=== PATIENT | female | born 1990 | race African-American/Black ===

== ENCOUNTER 2018-01-22 19:20 | Outpatient (CLI) | payer BC ==
[2018-01-22 19:24] VITALS: BP 132/78; PULSE 78; TEMP 98.2
[2018-01-22] MEDS ORDERED: PRENATAL MVI (20:00)
[2018-01-22] MEDS ORDERED: ZANTAC 150MG T150 MG (20:01)
[2018-01-22] MEDS ORDERED: PROFERRIN ES12 MG (20:02)
== END 2018-01-22 22:00 | disposition home or self-care (01) ==
LOC: LDRO 19:20
DX: O62.9 Abnormality of forces of labor, unspecified (principal); Z3A.38 38 weeks gestation of pregnancy

== ENCOUNTER 2018-01-27 16:20 | Inpatient (IN) | payer BC ==
[~2018-01-27] VITALS: Ht 167.6 cm; Wt 100.5 kg
[~2018-01-27 16:20] MED LIST: PRENATAL MVI; PROFERRIN ES12 MG; ZANTAC 150MG T150 MG
[2018-01-31] VITALS (40 sets, daily range): BP systolic 121–156; BP diastolic 59–97; PULSE 60–89; TEMP 97.9–98.3
[2018-01-31 08:58] LABS: BASO # 0.1 (0.0-0.2); BASO % 0.7 % (0.0-2.0); EOS # 0.3 (0.0-0.7); EOS % 3.1 % (0-4.0); GRAN # 6.1 (1.4-6.5); GRAN % 66.6 % (42.2-75.2); HEMATOCRIT 36.5 % (37.0-47.0); HEMOGLOBIN 11.8 g/dl (12.5-16.0); LYMPH # 1.9 (1.2-3.4); LYMPH % 20.5 % (20.0-51.0); MEAN CELL VOLUME 88 fl (80.0-100.0); MEAN CORPUSCULAR HEMOGLOBIN 28 pg (27.0-31.0); MEAN CORPUSCULAR HGB CONC 32 g/dl (33.0-37.0); MEAN PLATELET VOLUME 13.5 fl (7.4-10.4); MONO # 0.8 (0.1-0.6); MONO % 8.4 % (1.7-9.3); PLATELET COUNT 156 K/mm3 (130-400); RED BLOOD COUNT 4.17 M/mm3 (4.10-5.30); REDCELL DISTRIBUTION WIDTH-CV 15.5 % (11.5-14.5)
[2018-02-01 02:55] VITALS: BP 115/74; PULSE 87; TEMP 97.7
[2018-02-01] MEDS ORDERED: IBU600 MG PO (08:37)
[2018-02-01] MEDS ORDERED: PERCOCET 325 MG1 TA2 PO (08:37)
[2018-02-01 10:31] VITALS: BP 130/80; PULSE 80; TEMP 98.4
[2018-02-01 19:00] VITALS: BP 135/77; PULSE 65; TEMP 99.5
== END 2018-02-01 20:00 | disposition home or self-care (01) | DRG 774 ==
LOC: LDR 16:20 → OB 01-31 07:16 → LDR 01-31 07:16 → OB 01-31 16:34
PROVIDERS: Obstetrics & Gynecology
PROC: 10E0XZZ Delivery of Products of Conception, External Approach (ICD-10-PCS; principal; 2018-01-31)
PROC: 0KQM0ZZ Repair Perineum Muscle, Open Approach (ICD-10-PCS; 2018-01-31)
PROC: 3E033VJ Introduction of Other Hormone into Peripheral Vein, Percutaneous Approach (ICD-10-PCS; 2018-01-31)
DX: O48.0 Post-term pregnancy (principal); O72.1 Other immediate postpartum hemorrhage; O70.1 Second degree perineal laceration during delivery; Z3A.40 40 weeks gestation of pregnancy; Z37.0 Single live birth
CPT/HCPCS: J2210; J2590; J2795; J7120

== ENCOUNTER → 2020-09-05 | Outpatient (CLI) | payer BC ==
[~2020-09-05] MED LIST changes: +IBU600 MG PO; +IBU800 M1 PO; +NATURAL IRON65 MG PO; +PERCOCET 325 MG1 TA2 PO; +PROTONIX20 MG PO; +ZYRTEC 10MG10 MG PO
== END ==
LOC: ZCOL.LAB 08:00
DX: Z20.828 Contact with and (suspected) exposure to other viral communicable diseases (principal)

== ENCOUNTER 2020-09-09 07:08 | Inpatient (IN) | payer BC ==
[2020-09-09] VITALS (38 sets, daily range): BP systolic 107–158; BP diastolic 7–87; PULSE 60–660; TEMP 97.7–99.6
[~2020-09-09] VITALS: Ht 172.7 cm; Wt 103.2 kg
[~2020-09-09 07:08] MED LIST changes: -IBU800 M1 PO; -NATURAL IRON65 MG PO; -PROTONIX20 MG PO; -ZYRTEC 10MG10 MG PO
--- NOTE | 2020-09-09 07:20 | NUR ---
Patient ambulatory onto unit with at side for scheduled inducation of labor. Patient oriented to room, changes into gown, plan of care discussed. Patient reports good movement and irregular contractions, denies vaginal bleeding or leaking of fluid. EFMs on, VS taken. IV attempted x2, then started in right hand at 0740. Assessment completed. Consents signed.
[2020-09-09 08:06] LABS: BASO # 0.1 (0.0-0.2); BASO % 0.5 % (0.0-2.0); EOS # 0.2 (0.0-0.7); EOS % 1.9 % (0-4.0); GRAN # 6.6 (1.4-6.5); GRAN % 66.4 % (42.2-75.2); HEMOGLOBIN 11.2 g/dl (12.5-16.0); LYMPH # 2.3 (1.2-3.4); LYMPH % 22.7 % (20.0-51.0); MEAN CELL VOLUME 84 fl (80.0-100.0); MEAN CORPUSCULAR HEMOGLOBIN 27 pg (27.0-31.0); MEAN CORPUSCULAR HGB CONC 33 g/dl (33.0-37.0); MEAN PLATELET VOLUME 12.5 fl (7.4-10.4); MONO # 0.8 (0.1-0.6); MONO % 7.7 % (1.7-9.3); PLATELET COUNT 199 K/mm3 (130-400); REDCELL DISTRIBUTION WIDTH-CV 14.6 % (11.5-14.5)
[2020-09-09 08:11] LABS: HEMATOCRIT 34.5 % (37.0-47.0)
[2020-09-09] MEDS ORDERED: PROTONIX20 MG PO (08:39)
[2020-09-09] MEDS ORDERED: ZYRTEC 10MG10 MG PO (08:40)
[2020-09-09] MEDS ORDERED: NATURAL IRON65 MG PO (08:40)
--- NOTE | 2020-09-09 09:10 | NUR ---
Patient up to bathroom, voids without difficulty. Patient states contractions are becoming more frequent and intense. Standing at bedside and birthing ball offered, patient would like to stay in bed for now. supportive at bedside. Call light within reach.
--- NOTE | 2020-09-09 09:50 | NUR ---
to bedside. Plan of care discussed with patient. Questions answered. AROM at 0953, small amount of clear fluid noted with exam. SVE 3/-3 per provider. Call light within reach.
--- NOTE | 2020-09-09 10:15 | NUR ---
Patient up to bathroom, voids without difficulty. Patient states contractions are more intense but denies need for epidural at this time. Patient standing/swaying at bedside. supportive. Call light within reach.
--- NOTE | 2020-09-09 10:35 | NUR ---
Patient breathing through contractions, requesting epidural placement. Will notify Rolf MANCIA. Pericare performed, large amount of clear fluid noted.
--- NOTE | 2020-09-09 11:10 | NUR ---
1058: Patient sitting up for epidural placement. Rolf CABLE INSTALLER REPAIRER HELPER at bedside. 1102: Lidocaine. Single Shot given by Rolf CABLE INSTALLER REPAIRER HELPER, no adverse reactions noted. 1103: Epidural Catheter placed. 1110: Patient repositioned to left lateral.
--- NOTE | 2020-09-09 12:35 | NUR ---
to bedside. SVE 4-5//-2 per provider. Patient repositioned to left lateral with peanut ball in place. Patient denies pain or needs at this time. Call light within reach.
--- NOTE | 2020-09-09 13:20 | NUR ---
Patient repositioned to remington position. Denies pain or needs at this time. Encouraged to rest. Call light within reach.
--- NOTE | 2020-09-09 14:00 | NUR ---
SVE /-1. Patient repositioned to left lateral position with right leg up in stirrups. Patient denies pain or needs. at bedside. Call light within reach.
--- NOTE | 2020-09-09 14:35 | NUR ---
Patient reports feeling rectal pressure with contractions. SVE 8/100/0. Patient repositioned to right tilt with peanut ball in place.
--- NOTE | 2020-09-09 14:45 | NUR ---
Patient reports increased rectal pressure. "It feels like something is coming out." SVE , will notify .
--- NOTE | 2020-09-09 14:55 | NUR ---
at bedside. SVE unchanged, 9cm. Patient repositioned to right tilt with left upper leg in stirrup.
--- NOTE | 2020-09-09 15:35 | NUR ---
1505: Patient calls out reporting increased pressure with contractions. 1508: SVE Complete/+1 per . 1510: Yoon catheter dc'd. 1514: Initial push. 1517: Spontaneous vaginal delivery of viable male over 2nd degree perineal laceration assisted by . Care of infant assumed by Giuliana GANT at this time. Pitocin off. 1525: Spontaneous vaginal delivery of placenta assisted by . Pitocin infusing at 333ml/hr. Fundus firm, lochia WNL. 1527: 2nd degree perineal laceration repaired using 2-[address]-1. Red aamir catheter used to drain bladder by . 1535: Pericare performed. Ice pack in place. Recovery started. Fundus firm, scant lochia noted.
[2020-09-10] VITALS: BP 128/74; PULSE 78; TEMP 98.5
[2020-09-10 04:00] VITALS: BP 138/77; PULSE 80; TEMP 98.6
[2020-09-10] MEDS ORDERED: IBU800 M1 PO (07:46)
[2020-09-10 08:00] VITALS: BP 110/65; PULSE 76; TEMP 98.2
--- NOTE | 2020-09-10 10:09 | NUR ---
Initial visit; Parents thanked Job Setter Honing for offering congratulations and God's blessings fos the of their son. Job Setter Honing thanked family for choosing [facility]/ [facility].
== END 2020-09-10 17:04 | disposition home or self-care (01) | DRG 807 ==
LOC: LDR 07:08 → OB 16:30
PROVIDERS: ADMIT Student in an Organized Health Care Education/Training Program
PROC: 10E0XZZ Delivery of Products of Conception, External Approach (ICD-10-PCS; principal; 2020-09-09)
PROC: 0KQM0ZZ Repair Perineum Muscle, Open Approach (ICD-10-PCS; 2020-09-09)
PROC: 10907ZC Drainage of Amniotic Fluid, Therapeutic from Products of Conception, Via Natural or Artificial Opening (ICD-10-PCS; 2020-09-09)
DX: O99.214 Obesity complicating childbirth (principal); Z37.0 Single live birth; E66.9 Obesity, unspecified; O99.62 Diseases of the digestive system complicating childbirth; K21.9 Gastro-esophageal reflux disease without esophagitis; O70.1 Second degree perineal laceration during delivery; Z3A.39 39 weeks gestation of pregnancy
CPT/HCPCS: J2590; J2795; J7120

== ENCOUNTER 2022-05-05 08:21 | Inpatient (IN) | payer BC ==
[~2022-05-05] VITALS: Ht 167.6 cm; Wt 99.1 kg
[2022-05-05] VITALS (20 sets, daily range): BP systolic 100–132; BP diastolic 56–76; PULSE 61–84; TEMP 98–98.7
[~2022-05-05 08:21] MED LIST changes: +IBU800 M1 PO; +NATURAL IRON65 MG PO; +PROTONIX20 MG PO; +ZYRTEC 10MG10 MG PO
[2022-05-05 11:13] LABS: BASO # 0.1 K/mm3 (0.0-0.2); BASO % 0.6 % (0.0-2.0); EOS # 0.1 K/mm3 (0.0-0.7); EOS % 1.6 % (0.0-4.0); GRAN # 6.2 K/mm3 (1.4-6.5); GRAN % 75.1 % (42.2-75.2); HEMOGLOBIN 11.4 g/dl (12.5-16.0); LYMPH # 1.2 K/mm3 (1.2-3.4); LYMPH % 14.8 % (20.0-51.0); MEAN CELL VOLUME 84 fl (80.0-100.0); MEAN CORPUSCULAR HEMOGLOBIN 28 pg (27-31); MEAN CORPUSCULAR HGB CONC 33 g/dl (33.0-37.0); MEAN PLATELET VOLUME 12.6 fl (7.4-10.4); MONO # 0.6 K/mm3 (0.1-0.6); MONO % 7.5 % (1.7-9.3); PLATELET COUNT 175 K/mm3 (130-400); RED BLOOD COUNT 4.15 M/mm3 (4.10-5.30); REDCELL DISTRIBUTION WIDTH-CV 14.6 % (11.5-14.5)
[2022-05-05 11:18] LABS: HEMATOCRIT 34.8 % (37.0-47.0)
--- NOTE | 2022-05-05 12:54 | NUR ---
1128-PT SITTING FOR EPIDURAL. UNABLE TO CONTINOUSLY MONITOR FHR. PULSE OX ON, IV BOLUS GIVEN, TIMEOUT COMPLETED. 1133-TEST DOSE GIVEN.
[2022-05-06 02:00] VITALS: BP 125/74; PULSE 75; TEMP 98.4
[2022-05-06 07:45] VITALS: BP 117/73; PULSE 71; TEMP 98.8
[2022-05-06] MEDS ORDERED: IBU800 M1 PO (12:06)
[2022-05-06 12:23] VITALS: BP 119/71; PULSE 73; TEMP 98.5
--- NOTE | 2022-05-06 13:15 | NUR ---
REPORT REC'D FROM CLAUDIA VALDOVINOS RN, CARE ASSUMED BY THIS NURSE
--- NOTE | 2022-05-06 15:00 | NUR ---
DISCHARGE TEACHING COMPLETED, FOLLOW UP APPOINTMENTS COVERED, QUESTIONS INVITED AND ANSWERED.
== END 2022-05-06 15:05 | disposition home or self-care (01) | DRG 807 ==
LOC: LDR 08:21 → OB 09:47 → LDR 09:47 → OB 18:00 → LDR 05-07 11:01
PROVIDERS: ADMIT Student in an Organized Health Care Education/Training Program
PROC: 10E0XZZ Delivery of Products of Conception, External Approach (ICD-10-PCS; principal; 2022-05-05)
PROC: 10907ZC Drainage of Amniotic Fluid, Therapeutic from Products of Conception, Via Natural or Artificial Opening (ICD-10-PCS; 2022-05-05)
PROC: 3E033VJ Introduction of Other Hormone into Peripheral Vein, Percutaneous Approach (ICD-10-PCS; 2022-05-05)
PROC: 0UQMXZZ Repair Vulva, External Approach (ICD-10-PCS; 2022-05-05)
DX: O76 Abnormality in fetal heart rate and rhythm complicating labor and delivery (principal); Z37.0 Single live birth; O69.81X0 Labor and delivery complicated by cord around neck, without compression, not applicable or unspecified; K21.9 Gastro-esophageal reflux disease without esophagitis; O99.62 Diseases of the digestive system complicating childbirth; Z86.718 Personal history of other venous thrombosis and embolism; Z3A.39 39 weeks gestation of pregnancy; O70.0 First degree perineal laceration during delivery
CPT/HCPCS: J2590; J7120